=== PATIENT | female | born 1945 | race Caucasian/White ===

== ENCOUNTER 2021-06-18 13:32 | Emergency (ER) | payer MEDICARE, SELFPAY ==
--- NOTE | ~2021-06-18 | XR_ITS ---
EXAMINATION: XR shoulder RT min 2V CLINICAL INFORMATION: Reason for Exam fall, pain COMPARISON: None TECHNIQUE: Three views of the shoulder. XR/XR shoulder RT min 2V FINDINGS/IMPRESSION: Acute minimally impacted fracture of the humeral neck. No dislocation. Mild degenerative changes of the shoulder. Soft tissues are unremarkable. Visualized portion of lung appears clear.
--- NOTE | ~2021-06-18 | CT_ITS ---
CT HEAD WITHOUT IV CONTRAST CT CERVICAL SPINE WITHOUT IV CONTRAST INDICATION: Fall. Hit head. COMPARISON: None available. TECHNIQUE: Multidetector CT acquisitions of the head and cervical spine were obtained without IV contrast. Multiplanar reformats were acquired and utilized for image interpretation. This CT examination was performed using dose optimization techniques as appropriate, variously including the following: *Automated exposure control *Adjustment of mA and/or kV according to patient size (this includes techniques or standardized protocols for targeted exams where dose is matched to indication/reason for exam; i.e. extremities or head) *Use of iterative reconstruction technique FINDINGS: HEAD: There is no intracranial hemorrhage, hydrocephalus, extra-axial surface collection, midline shift, or other herniation pattern. Benavidez to white matter differentiation is diffusely maintained without evidence of an evolved acute territorial infarct. The basilar cisterns are preserved. No significant soft tissue abnormality. No acute osseous abnormality. Torus palatinus. Retention cyst within the left maxillary sinus. CERVICAL SPINE: No acute fractures and no acute subluxations within the cervical spine. Hypertrophic degenerative changes at the atlantodental interval. Multilevel cervical spondylosis. There is no prevertebral soft tissue swelling. The craniocervical junction is unremarkable. 1 cm coarse calcification within the right thyroid lobe. CT/CT cervical spine wo con IMPRESSION: - There are no acute intracranial findings. - No acute osseous findings within the cervical spine. Multilevel cervical spondylosis.
--- NOTE | ~2021-06-18 | CT_ITS ---
CT HEAD WITHOUT IV CONTRAST CT CERVICAL SPINE WITHOUT IV CONTRAST INDICATION: Fall. Hit head. COMPARISON: None available. TECHNIQUE: Multidetector CT acquisitions of the head and cervical spine were obtained without IV contrast. Multiplanar reformats were acquired and utilized for image interpretation. This CT examination was performed using dose optimization techniques as appropriate, variously including the following: *Automated exposure control *Adjustment of mA and/or kV according to patient size (this includes techniques or standardized protocols for targeted exams where dose is matched to indication/reason for exam; i.e. extremities or head) *Use of iterative reconstruction technique FINDINGS: HEAD: There is no intracranial hemorrhage, hydrocephalus, extra-axial surface collection, midline shift, or other herniation pattern. Benavidez to white matter differentiation is diffusely maintained without evidence of an evolved acute territorial infarct. The basilar cisterns are preserved. No significant soft tissue abnormality. No acute osseous abnormality. Torus palatinus. Retention cyst within the left maxillary sinus. CERVICAL SPINE: No acute fractures and no acute subluxations within the cervical spine. Hypertrophic degenerative changes at the atlantodental interval. Multilevel cervical spondylosis. There is no prevertebral soft tissue swelling. The craniocervical junction is unremarkable. 1 cm coarse calcification within the right thyroid lobe. CT/CT head/brain wo con IMPRESSION: - There are no acute intracranial findings. - No acute osseous findings within the cervical spine. Multilevel cervical spondylosis.
[2021-06-18 13:54] VITALS: BP 121/73; PULSE 67; O2SAT 97
[2021-06-18 14:01] VITALS: BP 157/66; PULSE 71; RESP 18; TEMP 36.6; O2SAT 99; BMI 27.3
--- NOTE | 2021-06-18 14:28 | ED.FALL ---
HPI - Fall General Chief Complaint: Fall Stated Complaint: fall, hit head Time Seen by Provider: 06/18/21 14:01 Source: patient and EMS Mode of arrival: EMS Limitations: no limitations History of Present Illness HPI Narrative: 76-year-old female healthy, no anticoagulation here after a fall which occurred just prior to arrival. Patient tells me she was walking her dog when he saw another dog and pulled her quickly causing her to fall to the ground. Patient hit the right side of her body including her head. There was no loss of consciousness. Since a fall patient reports right-sided headache and facial pain with right shoulder pain. No anticoagulation use. No aspirin use. No neck pain, vision changes, vomiting, chest pain, abdominal pain. Related Data Previous Rx's Medication Instructions Recorded oxycodone 5 mg tablet 5 mg PO Q6H PRN #8 tab 06/18/21 Allergies Allergy/AdvReac Type Severity Reaction Status Date / Time Unable to Assess Allergy Verified 06/18/21 14:21 Review of Systems Review of Systems: Yes all other systems are reviewed and are negative Constitutional: Constitutional: Reports no additional constitutional complaints, Denies body ache(s), Denies chills, Denies fever(s), Denies headache(s) and Denies weakness Eyes: Eyes: Reports no additional eye complaints and Denies change in vision ENT: Reports system reviewed and no additional complaints, except as documented, Denies dizziness, Denies headache(s), Denies nasal congestion, Denies nasal discharge and Denies neck pain Cardiovascular: Cardiovascular: Reports no additional cardiovascular complaints, Denies chest pain, Denies leg edema and Denies dyspnea Respiratory: Respiratory: Reports no additional respiratory complaints, Denies cough and Denies dyspnea Gastrointestinal: Gastrointestinal: Reports no additional gastrointestinal complaints, Denies abdominal pain, Denies diarrhea, Denies nausea and Denies vomiting Genitourinary: Genitourinary: Reports no additional female genitourinary complaints and Denies urinary incontinence Musculoskeletal: Musculoskeletal: Reports no additional musculoskeletal complaints, Denies back pain, Reports arthralgias, Denies joint swelling, Reports limited range of motion, Denies neck pain, Denies numbness and Denies tingling Integumentary/Breasts: Skin/Breast: Reports system reviewed and no additional complaints, except as docu and Denies rash Comments: +lac Neurologic: Reports system reviewed and no additional complaints, except as documented, Denies Abnormal speech present, Denies dizziness, Denies headache(s), Denies numbness, Denies tingling and Denies weakness PMFSH Past Medical History Attestation statement: The following information was validated with the patient. Source: old records reviewed and nursing notes reviewed Social History Social History Alcohol intake: current Alcohol intake frequency: holidays/special occasions only Patient Tobacco Use Status: Never used Tobacco Use of substances other than those prescribed or required for medical reasons: No Advance Directives: No Advance Directives Information Provided: Yes Physical Exam Vital Signs: Vital Signs: Last Vital Signs Temp 98.1 F 06/18/21 16:06 Pulse 72 06/18/21 16:06 Resp 18 06/18/21 16:06 BP 144/66 H 06/18/21 16:06 Pulse Ox 98 06/18/21 16:06 BMI result Body Mass Index 27.3 Const: General: cooperative and healthy appearing Orientation/consciousness: patient oriented x3 Limitations: no limitations HEENT: Head: Yes normal to inspection and No raccoon eyes Head images: 1. 4cm lac bleeding controlled Ears: hearing grossly normal bilaterally and TM's normal bilaterally General nose exam: Normal external nose present Face and sinus: Yes normal facial exam Mouth: Normal oral and palatal mucosa present Throat: Yes posterior oropharynx normal, Yes tonsils normal and Yes uvula midline Eyes: General: appearance normal, both eyes and all related structures Pupils: Equal, round and reactive pupils present EOM: EOMs intact bilaterally Neck: Other: No cervical tenderness, step-offs or deformities Neck: Yes normal visual inspection, Yes full ROM, Yes no lymphadenopathy and Yes no meningeal signs Chest: Chest palpation & inspection: normal inspection of the chest Resp: Effort & Inspection: normal respiratory effort Auscultation: clear to auscultation bilaterally Cardio: Rate: regular rate Rhythm: regular rhythm Peripheral pulses: Peripheral pulses 2+ throughout GI: Inspection: Yes normal to inspection Palpation (GI): Soft to palpation and nontender Auscultation: normal bowel sounds Back/Spine/Pelvis: Thoracic/Lumbar Spine: thoracic and lumbar spine normal to inspection Skin: Other: Abrasions noted over the right upper extremity General skin exam: no rashes or lesions noted Neuro: General: patient oriented x3, moves all extremities, no meningeal signs, no focal motor deficits and normal sensation to monofilament Cranial nerves: Yes CN's II-XII intact bilaterally, Yes Equal, round and reactive pupils present, Yes Bilaterally intact EOM present, Yes Nystagmus not present and Yes Normal facial strength present Cognition (Neuro): normal cognition Speech: No Abnormal speech present Motor exam (neuro): 5/5 motor strength present throughout Sensory Exam: Normal double simultaneous stimulation for sensation Extrem: Other: There is swelling, tenderness to the right shoulder and proximal humerus with limited range of motion due to pain General: Yes normal to inspection Course Course Course Narrative: 76-year-old female here after mechanical fall with right shoulder pain and laceration and tenderness to the right side of the face. There is swelling and tenderness with limited range of motion of the right upper extremity. Will check x-rays. Due to age with head strike will check CT head and neck. Will provide analgesia, update tetanus Reevaluation(s) Reevaluation #1: CT head and neck show no intracranial hemorrhage or bony abnormality. X-rays of the right shoulder show an impacted right proximal humeral fracture. Patient placed in a sling in follow-up with Orthopedics. See procedure note for wound repair. Reviewed worrisome signs and symptoms of when to return to the emergency department. Comfortable discharge home. Procedures Procedure Narrative Procedure Narrative: Sling Laceration Laceration 1: Site: scalp (Right periorbital) Side (If applicable): right Size (cm): 4 Description: linear Depth: simple, single layer Local Anesthetic: lidocaine 2% Amount of anesthesia used (mL): 3 Pre-repair: wound explored and irrigated extensively Skin layer closed with: other (prolene) Size (cm): 6-0 Number of sutures: 3 Technique: simple, interrupted MDM - Fall Medical Records Attestation: I reviewed the patient's medical records. Lab Data Attestation: I reviewed the patient's lab results. Result diagrams: 06/18/21 14:51 06/18/21 15:09 Labs: Lab Results 06/18/21 06/18/21 Range/Units 14:51 15:09 WBC 9.2 (4.8-10.8) X10*3/uL RBC 4.51 (4.20-5.50) X10*6/uL Hgb 14.3 (12.0-16.0) g/dl Hct 43.1 (37.0-47.0) % MCV 95.6 (80.0-98.0) fL MCH 31.7 (27.0-33.0) pg MCHC 33.2 (31.0-35.0) g/dl RDW 13.2 (11.0-16.0) % Plt Count 240 (160-400) X10*3/uL MPV 9.7 (9.4-12.3) fL Immature Gran % (Auto) 0.2 (0.0-0.4) % Neut % (Auto) 68.6 (45-73) % Lymph % (Auto) 24.2 (20-40) % Edmonson % (Auto) 6.4 (2-11) % Eos % (Auto) 0.4 (0-4) % Baso % (Auto) 0.2 (0-2) % Lymph # (Auto) 2.2 (1.2-4.9) X10*3/uL Edmonson # (Auto) 0.6 (0.1-1.2) X10*3/uL Eos # (Auto) 0.0 (0.0-0.4) X10*3/uL Baso # (Auto) 0.0 (0.0-0.2) X10*3/uL Abs Immat Gran (auto) 0.02 (0.00-0.03) X10*3/uL Absolute Neuts (auto) 6.3 (2.0-8.3) x10*3/uL Absolute Nucleated RBC 0.000 (0.0-0.012) X10*3/uL Nucleated RBC % (auto) 0.0 (0.0-0.2) /100WBC Sodium 139 (135-145) mmol/L Potassium 3.7 (3.3-5.1) mmol/L Chloride 104 (96-108) mmol/L Carbon Dioxide 22 (22-29) mmol/L Anion Gap 17 (12-20) BUN 17 H (9-16) mg/dL Creatinine 0.76 (0.5-1.4) mg/dL Estim Creat Clear Calc 55.5 Estimated GFR > 60 Random Glucose 137 H (60-115) mg/dL Calcium 9.8 (8.4-10.2) mg/dL Imaging Data ct head/neck: Attestation: I personally reviewed and interpreted this imaging study as follows: Radiologist's impression: HEAD: There is no intracranial hemorrhage, hydrocephalus, extra-axial surface collection, midline shift, or other herniation pattern. Benavidez to white matter differentiation is diffusely maintained without evidence of an evolved acute territorial infarct. The basilar cisterns are preserved. No significant soft tissue abnormality. No acute osseous abnormality. Torus palatinus. Retention cyst within the left maxillary sinus. CERVICAL SPINE: No acute fractures and no acute subluxations within the cervical spine. Hypertrophic degenerative changes at the atlantodental interval. Multilevel cervical spondylosis. There is no prevertebral soft tissue swelling. The craniocervical junction is unremarkable. 1 cm coarse calcification within the right thyroid lobe. CT/CT cervical spine wo con IMPRESSION: - There are no acute intracranial findings. ? - No acute osseous findings within the cervical spine. Multilevel cervical spondylosis. shoulder x-ray: Attestation: I personally reviewed and interpreted this imaging study as follows: Radiologist's impression: XR/XR shoulder RT min 2V FINDINGS/IMPRESSION: ? Acute minimally impacted fracture of the humeral neck. No dislocation. ? Mild degenerative changes of the shoulder. ? Soft tissues are unremarkable. ? Visualized portion of lung appears clear. Discharge Plan Discharge Clinical Impression: Fracture of humeral head, right, closed, Laceration of face, Abrasion head Patient Disposition: Home, Self-Care Instructions: Arm Fracture in Adults (ED), Laceration (ED), Abrasion (ED) Additional Instructions: You sling for comfort Apply ice to the area Follow-up with orthopedic Suture removal in 5-7 days Prescriptions: New oxycodone 5 mg tablet 5 mg PO Q6H PRN (Reason: pain) Qty: 8 0RF Referrals: [facility] [place] [facility] [Provider Group] - 5 days
[2021-06-18 14:54] LABS: MANUAL DIFF FLAG NO
[2021-06-18 14:56] LABS: Basophils Percent Auto 0.2 % (0-2); Eosinophils Percent Auto 0.4 % (0-4); Hematocrit 43.1 % (37.0-47.0); Hemoglobin 14.3 g/dl (12.0-16.0); Imm Gran Abs Auto 0.02 X10*3/uL (0.00-0.03); Imm Gran Pct Auto 0.2 % (0.0-0.4); Lymphocytes Absolute Auto 2.2 X10*3/uL (1.2-4.9); Lymphocytes Percent Auto 24.2 % (20-40); Mean Corpuscular HGB Conc 33.2 g/dl (31.0-35.0); Mean Corpuscular Hemoglobin 31.7 pg (27.0-33.0); Mean Corpuscular Volume 95.6 fL (80.0-98.0); Mean Platelet Volume 9.7 fL (9.4-12.3); Monocytes Absolute Auto 0.6 X10*3/uL (0.1-1.2); Monocytes Percent Auto 6.4 % (2-11); Neutrophils Absolute Auto 6.3 x10*3/uL (2.0-8.3); Neutrophils Percent Auto 68.6 % (45-73); Platelet Count 240 X10*3/uL (160-400); Red Blood Count 4.51 X10*6/uL (4.20-5.50); Red Cell Distribution Width 13.2 % (11.0-16.0); White Blood Count 9.2 X10*3/uL (4.8-10.8)
[2021-06-18] MEDS: Morphine Sulfate 4 MG/ML CARTRIDGE IVPUSH (15:00)
[2021-06-18] MEDS: ondansetron HCL 4 MG/2 ML VIAL IVPUSH (15:00)
[2021-06-18] MEDS: Diphth,Pertus(ACell),Tet Adult 0.5 ML SYRINGE IM (15:03)
[2021-06-18 15:28] LABS: Anion Gap 17 (12-20); Blood Urea Nitrogen 17 mg/dL (9-16); Calcium 9.8 mg/dL (8.4-10.2); Carbon Dioxide 22 mmol/L (22-29); Chloride 104 mmol/L (96-108); Creatinine Clr Calc Pharmacy 55.5; Estimated Glomerular Filt Rate > 60; Glucose Random 137 mg/dL (60-115); Potassium 3.7 mmol/L (3.3-5.1); Sodium 139 mmol/L (135-145)
[2021-06-18] MEDS: Lidocaine HCl 2 % MPF 5 ML VIAL SUBCUT (15:50)
[2021-06-18 16:06] VITALS: BP 144/66; PULSE 72; RESP 18; TEMP 36.7; O2SAT 98
[2021-06-18] MEDS: oxyCODONE HCl Immed Release 5 MG TABLET PO (17:59)
[2021-06-18 19:08] VITALS: BP 140/60; PULSE 88; RESP 17; O2SAT 97
== END 2021-06-18 19:18 | disposition home or self-care (01) ==
PROVIDERS: Nurse Practitioner Family; Emergency Provider Emergency Medicine; PCP Physician Assistant
DX: S01.01XA Laceration without foreign body of scalp, initial encounter (principal); G44.309 Post-traumatic headache, unspecified, not intractable; M25.511 Pain in right shoulder; M54.2 Cervicalgia; W18.30XA Fall on same level, unspecified, initial encounter; Y93.K1 Activity, walking an animal; Y92.410 Unspecified street and highway as the place of occurrence of the external cause; Y99.9 Unspecified external cause status; Z79.899 Other long term (current) drug therapy
CPT/HCPCS: 12002; 36415; 70450; 72125; 73030; 80048; 85025; 90471; 90715; 96374; 96375; 99284; J2270; J2405

== ENCOUNTER 2021-09-24 12:00 | Outpatient (RCR) | payer MEDICARE, SELFPAY ==
[2021-08-04 12:54] VITALS: BP 140/65; PULSE 77
== END 2021-11-24 15:21 | disposition home or self-care (01) ==
LOC: HO.PT 12:00
PROVIDERS: PCP Nurse Practitioner Family; Visit Provider Nurse Practitioner Family
DX: S42.201D Unspecified fracture of upper end of right humerus, subsequent encounter for fracture with routine healing (principal)
CPT/HCPCS: 97110; 97140; 97162

== ENCOUNTER 2022-11-30 16:37 | Emergency (ER) | payer MEDICARE, SELFPAY ==
--- NOTE | ~2022-11-30 | XR_ITS ---
EXAMINATION: XR HAND, LEFT CLINICAL INFORMATION: Fall, pain left fifth metacarpal. COMPARISON: None available. TECHNIQUE: PA, lateral, and oblique views of the left hand. FINDINGS: There is diffuse osteopenia. There is loss of PIP and DIP joint space without any periarticular spurring or erosive changes. The MCP joint space is preserved. No visible acute fracture or dislocation seen involving the metacarpals. The soft tissues are normal. XR/XR hand LT 2V IMPRESSION: 1. Diffuse osteopenia. No visible acute fracture or dislocation seen. 2. Mild degenerative changes PIP and DIP joints.
--- NOTE | ~2022-11-30 | CT_ITS ---
EXAMINATION: CT brain and CT cervical spine without contrast. CLINICAL INDICATION: Fall, head strike. Neck pain. COMPARISON: CT brain and CT cervical spine 06/18/2021. TECHNIQUE: 5 mm thin axial and reformatted 2 mm thin sagittal and coronal images of brain were obtained. Axial 3 mm thin and reformatted 2 mm thin sagittal and coronal images of cervical spine were obtained. DLP 975 mGy/cm. FINDINGS: Brain: There is no acute intra-axial, extra-axial bleed, masses or midline shift.. There is no acute infarction evolution. No edema. The malone to white matter differentiation is maintained normal. The lateral ventricles are symmetrical in size and configuration. With mild prominence. The cortical sulci are prominent as well. No abnormality seen in the posterior fossa. Cervical spine: There is maintained cervical lordosis. The vertebral heights are normal. There is grade 1 anterolisthesis C3 C5 over C6 vertebra. Rest the vertebral alignment is normal. Mild loss of C6-C7 disc height is seen. The craniovertebral junction and the C1-C2 alignment is normal. There is mild bilateral facet joint arthropathy and hypertrophy. No visible acute fracture, dislocation or lytic process seen. The prevertebral and the paravertebral soft tissues are normal. The airways clear. There is lung apices are clear. CT/CT cervical spine wo IV con IMPRESSION: No acute intracranial process seen. No acute fracture or dislocation cervical spine. Grade 1 anterolisthesis C5 over C6 with mild degenerative changes and ventral spondylosis C6-C7 disc levels.
--- NOTE | ~2022-11-30 | CT_ITS ---
EXAMINATION: CT brain and CT cervical spine without contrast. CLINICAL INDICATION: Fall, head strike. Neck pain. COMPARISON: CT brain and CT cervical spine 06/18/2021. TECHNIQUE: 5 mm thin axial and reformatted 2 mm thin sagittal and coronal images of brain were obtained. Axial 3 mm thin and reformatted 2 mm thin sagittal and coronal images of cervical spine were obtained. DLP 975 mGy/cm. FINDINGS: Brain: There is no acute intra-axial, extra-axial bleed, masses or midline shift.. There is no acute infarction evolution. No edema. The malone to white matter differentiation is maintained normal. The lateral ventricles are symmetrical in size and configuration. With mild prominence. The cortical sulci are prominent as well. No abnormality seen in the posterior fossa. Cervical spine: There is maintained cervical lordosis. The vertebral heights are normal. There is grade 1 anterolisthesis C3 C5 over C6 vertebra. Rest the vertebral alignment is normal. Mild loss of C6-C7 disc height is seen. The craniovertebral junction and the C1-C2 alignment is normal. There is mild bilateral facet joint arthropathy and hypertrophy. No visible acute fracture, dislocation or lytic process seen. The prevertebral and the paravertebral soft tissues are normal. The airways clear. There is lung apices are clear. CT/CT head/brain wo IV con IMPRESSION: No acute intracranial process seen. No acute fracture or dislocation cervical spine. Grade 1 anterolisthesis C5 over C6 with mild degenerative changes and ventral spondylosis C6-C7 disc levels.
[2022-11-30 16:59] VITALS: BP 122/92; BP 159/60; PULSE 75; PULSE 80; RESP 18; TEMP 36.6; O2SAT 95; O2SAT 98; BMI 27.4
--- NOTE | 2022-11-30 17:14 | ED_ITS ---
HPI - Fall General Chief Complaint: Fall Stated Complaint: tripped over curb, no headstrike Time Seen by Provider: 11/30/22 17:02 Source: patient and family ( ) Mode of arrival: EMS Limitations: no limitations History of Present Illness HPI Narrative: 77-year-old female who presents emergency department for evaluation trip and fall in a parking lot. Patient states that she was at [employer], tripped over the curb and struck her head on the pavement. She had no loss of consciousness. She did developed a headache, nausea and vomited once. She states that her nausea is resolved but she currently has a mild headache in the area where she has abrasion to her left forehead. Patient denied being ill in any way prior to falling. She does not know her last tetanus shot was given she believes that wa s greater than 5 years prior. Related Data Previous Rx's Medication Instructions Recorded oxycodone 5 mg tablet 5 mg PO Q6H PRN pain #8 tabs 06/18/21 Allergies Allergy/AdvReac Type Severity Reaction Status Date / Time Unable to Assess Allergy Verified 06/18/21 14:21 Review of Systems Review of Systems: Yes all other systems are reviewed and are negative [facility] Past Medical History [facility] Narrative: Past medical history: Hypertension, hyperlipidemia, GERD, depression, hypothyroidism. Social history: Patient lives with her , Arya was here in the emergency department with her. she denies tobacco use, she occasionally drinks alcohol, she denies drug use Social History Social History Alcohol intake: current Alcohol intake frequency: holidays/special occasions only Patient Tobacco Use Status: Never used Tobacco Advance Directives: No Advance Directives Information Provided: No Physical Exam Vital Signs: Vital Signs: Last Vital Signs Temp 98.4 F 11/30/22 20:53 Pulse 72 11/30/22 20:53 Resp 18 11/30/22 20:53 BP 144/65 H 11/30/22 20:53 Pulse Ox 96 11/30/22 20:53 O2 Del Method Room Air 11/30/22 20:53 BMI result Body Mass Index 27.4 vital signs revealed an elevated blood pressure of 159/66 otherwise unremarkable exam: General: Awake, alert in no distress Head: Patient has an abrasion to her left forehead with a small hematoma, this area is tender to palpation, head is normal cephalic EENT: PERRL, Lids normal, sclera normal, conjunctiva normal, nose normal , ears normal, throat without erythema or exudates Neck: Supple, no adenopathy, trachea midline and nontender Lung: breath sounds symmetric, no wheezing, rales or rhonchi Chest: symmetric movement, nontender Heart: regular rate and rhythm, normal S1, S2 no murmurs or rubs Abdomen: soft, non-tender, nondistended, normal bowel sounds Back: no vertebral tenderness, no CVAT Extremities: no deformities, moves all extremities symmetrically, patient has a CT should superficial skintear to the left palmar aspect of the 5th MCP area measures 2.5 cm, patient has tenderness with palpation of this area but full range of motion of her hand and MCP joints with patient. Skin: no rashes, no lesion, normal color and warmth Neuro: Awake, alert, oriented, normal speech, cranial nerves intact, moves all extremities symmetrically Psych: Pleasant, cooperative Medications Administered Discontinued Medications Generic Name Dose Route Start Last Admin Trade Name Gianniq PRN Reason Stop Dose Admin Acetaminophen 975 mg 11/30/22 17:11 11/30/22 17:22 Acetaminophen 325 Mg Tablet PO 11/30/22 17:12 975 mg ONCE STA Administration Diphtheria/Tetanus/Acell Pertussis 0.5 ml 11/30/22 17:11 11/30/22 17:22 Diphth,Pertus(Acell),Tet Adult 0.5 Ml Syringe IM 11/30/22 17:12 0.5 ml .ONCE ONE Administration Procedures Laceration left hand palmar aspect 5th MCP skin tear: Site: hand Side (If applicable): left Size (cm): 2.5 Description: flap ( C-shaped) Depth: simple, single layer Amount of anesthesia used (mL): 0 Pre-repair: wound explored Skin layer closed with: other ( skin glucose/ Dermabond) Medical Decision Making Medical Decision Making MDM Narrative: 77-year-old female who presents emergency department for evaluation of injuries from a trip and fall in a parking lot, the patient tripped over a curb, fell forward and struck her head and hand on the pavement, she had no loss of consciousness however she did developed a headache, nausea and 1 episode of vomiting. She describes her headache is mild at this time and her nausea is resolved. Patient was not ill in any way prior to the fall. Patient's exam did reveal an abrasion to her left forehead with a small hematoma and a skin tear to the left palmar aspect of her hand. I ordered a CT scan of the head and cervical spine to rule out fracture, bleed , left hand x-ray. Patient was treated with Tylenol 975 mg orally and given a Tdap since her last Tdap was greater than 5 years prior. 2057: The patient's CT scan of the head and cervical spine revealed no acute fracture or bleed- patient does have significant arthritic changes of her neck. X-ray of her left hand revealed no acute fracture patient was given printed and verbal instructions and discharged home. Differential Diagnosis Differential Diagnoses: The differential diagnosis associated with the presentation includes Differential diagnosis includes was not limited to use skull fracture, intracranial bleed, cervical fracture, tetanus exposure Admission/Observation Consideration of admission/observation: Escalation of care including admission/observation considered Radiology Impression Discussion of test interpretation with radiology: I have reviewed the radiologist's reading. Radiologist Impression: CT head/brain wo IV con CT cervical spine wo IV con IMPRESSION: No acute intracranial process seen. No acute fracture or dislocation cervical spine. Grade 1 anterolisthesis C5 over C6 with mild degenerative changes and ventral spondylosis C6-C7 disc levels. Dictated By: Surjit Mallory MD XR hand LT 2V IMPRESSION: 1. Diffuse osteopenia. No visible acute fracture or dislocation seen. 2. Mild degenerative changes PIP and DIP joints. Dictated By: Surjit Mallory MD Discharge Plan Discharge Clinical Impression: Need for Tdap vaccination Fall Qualifiers: Encounter type: initial encounter Qualified Code(s): W19.XXXA - Unspecified fall, initial encounter Closed head injury Qualifiers: Encounter type: initial encounter Qualified Code(s): S09.90XA - Unspecified injury of head, initial encounter Hematoma of frontal scalp Qualifiers: Encounter type: initial encounter Qualified Code(s): S00.03XA - Contusion of scalp, initial encounter Laceration of hand, left Qualifiers: Encounter type: initial encounter Foreign body presence: without foreign body Qualified Code(s): S61.412A - Laceration without foreign body of left hand, initial encounter Patient Disposition: Home, Self-Care Instructions: Head Injury (ED), Skin Adhesive Care (ED) Additional Instructions: The CT scan of your head revealed no skull fracture bleeding in your brain The CT scan of your neck revealed no broken bones/fractures but you do have arthritis of your neck. The x-ray of your left hand revealed no broken bones. Insert pain medication Take Tylenol (acetaminophen) 500 mg pills, 2 pills every 6 hours as needed for pain or fever. Apply bacitracin to the abrasion on your forehead twice a day for 1 week. Do not apply any creams or antibiotic ointments to the skin glue on your left hand. Watch for signs of infection which include increased redness, increased swelling, drainage of pus, red streaks going away from the wound Follow-up with your doctor in 2 days. Please return to the emergency department if your symptoms get worse or if you develop any symptoms that are concerning to you. Prescriptions: No Action oxycodone 5 mg tablet 5 mg PO Q6H PRN (Reason: pain) Qty: 8 0RF
[2022-11-30] MEDS: Acetaminophen 325 MG TABLET 975 MG PO (17:22)
[2022-11-30] MEDS: Diphth,Pertus(ACell),Tet Adult 0.5 ML SYRINGE IM (17:22)
--- NOTE | 2022-11-30 17:58 | PC.NURSE ---
[facility] forehead - denies pain there. reports pain to left hand - 2cm lac there, glued by provider. c-collar removed by provider.
[2022-11-30 20:53] VITALS: BP 144/65; PULSE 72; RESP 18; TEMP 36.9; O2SAT 96
== END 2022-11-30 21:16 | disposition home or self-care (01) ==
PROVIDERS: Emergency Provider Emergency Medicine Emergency Medical Services
DX: S61.412A Laceration without foreign body of left hand, initial encounter (principal); S00.01XA Abrasion of scalp, initial encounter; S60.512A Abrasion of left hand, initial encounter; M79.642 Pain in left hand; R51.9 Headache, unspecified; M54.2 Cervicalgia; W01.10XA Fall on same level from slipping, tripping and stumbling with subsequent striking against unspecified object, initial encounter; Y93.9 Activity, unspecified; Y92.481 Parking lot as the place of occurrence of the external cause; Y99.9 Unspecified external cause status; Z79.899 Other long term (current) drug therapy; Z23 Encounter for immunization
CPT/HCPCS: 12001; 70450; 72125; 73120; 90471; 90715; 99284